=== PATIENT | female | born 2000 | race Caucasian/White ===

== ENCOUNTER 2020-08-26 17:47 | Emergency (ER) | payer OTHER ==
[~2020-08-26] VITALS: Ht 170.2 cm; Wt 71.4 kg
[2020-08-26] MEDS ORDERED: METOCLOPRAMIDE INJ 10MG/2ML VIAL (J2765 PER 1) IV ONE (19:25)
[2020-08-26] MEDS ORDERED: NS 1,000 ML IV ONE (19:25)
[2020-08-26] MEDS ORDERED: diphenhydrAMINE 50MG/ML VIAL (J1200) IV ONE (19:25)
[2020-08-26 19:50] LABS: BASO % 0.4 % (0.0-1.0); HEMATOCRIT 40.8 % (36.0-47.0); HEMOGLOBIN 13.7 g/dl (12.0-15.5); LYMPH # 0.7 10^3/uL (1.5-5.0); LYMPH % 6.4 % (24.0-44.0); MEAN CORPUSCULAR HEMOGLOBIN 30.1 pg (27.0-33.0); MEAN CORPUSCULAR HGB CONC 33.6 g/dl (32.0-36.5); MEAN CORPUSCULAR VOLUME 89.7 fl (80.0-96.0); MONO # 0.3 10^3/uL (0.0-0.8); MONO % 3.1 % (2.0-8.0); NEUTROPHILS # 9.8 10^3/uL (1.5-8.5); NEUTROPHILS % 89.5 % (36.0-66.0); PLATELET COUNT, AUTOMATED 202 10^3/uL (150-450); RED BLOOD COUNT 4.55 10^6/uL (4.00-5.40); WHITE BLOOD COUNT 10.9 10^3/uL (4.0-10.0)
[2020-08-26] MEDS ORDERED: KETOROLAC 30 MG/ML 1ML VIAL IV ONE (20:40)
[2020-08-26 20:43] LABS: ERYTHROCYTE SEDIMENTATION RATE 3 mm/hr (0-20)
--- NOTE | 2020-08-26 20:53 | REPVR ---
PROCEDURE INFORMATION: Exam: CT Head Without Contrast Exam date and time: 08/26/2020 8:10 PM Age: 20 years old Clinical indication: Pain; Headache; Additional info: Head ache, bitemporal TECHNIQUE: Imaging protocol: Computed tomography of the head without contrast. Radiation optimization: All CT scans at this facility use at least one of these dose optimization techniques: automated exposure control; mA and/or kV adjustment per patient size (includes targeted exams where dose is matched to clinical indication); or iterative reconstruction. COMPARISON: No relevant prior studies available. FINDINGS: Brain: Normal. No hemorrhage. Unremarkable white matter. No mass effect. Cerebral ventricles: No ventriculomegaly. Bones/joints: Unremarkable. No acute fracture. Paranasal sinuses: Visualized sinuses are unremarkable. No fluid levels. Mastoid air cells: Visualized mastoid air cells are well aerated. Soft tissues: Unremarkable. IMPRESSION: No acute intracranial abnormality. Electronically signed by: Jay Betancourt On 08/26/2020 20:52:40 PM
[2020-08-26] MEDS ORDERED: ONDA4TAB6 PO (21:55)
[2020-08-26] MEDS ORDERED: KETO10TAB PO (21:55)
[2020-08-26 22:06] VITALS: BP 108/50
== END 2020-08-26 22:19 | disposition home or self-care (01) ==
LOC: M ED 17:47
DX: R51.9 Headache, unspecified (principal); R11.2 Nausea with vomiting, unspecified
CPT/HCPCS: 70450; 80047; 84702; 85025; 85652; 96361; 96374; 96375; 99284; J1200; J1885; J2765

== ENCOUNTER 2022-12-27 13:50 | Emergency (ER) | payer OTHER ==
[~2022-12-27] VITALS: Ht 170.2 cm; Wt 93.1 kg
[~2022-12-27 13:50] MED LIST: KETO10TAB PO; ONDA4TAB6 PO
[2022-12-27 18:38] VITALS: BP 115/76; TEMP 97.5; O2SAT 98
== END 2022-12-27 18:44 | disposition home or self-care (01) ==
LOC: M ED 13:50
DX: R04.0 Epistaxis (principal); Z3A.39 39 weeks gestation of pregnancy; Z79.1 Long term (current) use of non-steroidal anti-inflammatories (NSAID); Z79.899 Other long term (current) drug therapy

== ENCOUNTER 2022-12-30 13:50 | Inpatient (IN) | payer OTHER ==
[~2022-12-30] VITALS: Ht 170.2 cm; Wt 91.9 kg
[2022-12-30] VITALS (29 sets, daily range): BP systolic 112–147; BP diastolic 57–87
[2022-12-30] MEDS ORDERED: MULTTAB20 PO (14:06)
[2022-12-30] MEDS ORDERED: HOME MED LIST COMPLETE! XX SCH (14:10)
[2022-12-30] MEDS ORDERED: LACTATED RINGER'S 1000 ML IV STA (14:59)
[2022-12-30] MEDS ORDERED: OXYTOCIN DRIP 30 UNITS in IV 1 EA IV SCH (15:00)
[2022-12-30] MEDS ORDERED: LIDOCAINE 1% MDV 20ML VIAL INFIL PRN (15:00)
[2022-12-30] MEDS ORDERED: OXYTOCIN DRIP 30 UNITS in IV 1 EA IV PRN ×6 (15:00)
[2022-12-30] MEDS ORDERED: TRANEXAMIC ACID INJection 1,000 MG in NS 100 ML IV PRN (15:00)
[2022-12-30] MEDS ORDERED: OXYTOCIN INJ 10UNITS/ML 1ML VIAL IM PRN (15:00)
[2022-12-30] MEDS ORDERED: OXYTOCIN INJ 10UNITS/ML 1ML VIAL IV PRN (15:00)
[2022-12-30] MEDS ORDERED: CARBOPROST TROMETHAMINE 250 MCG/ML AMP IM PRN (15:00)
[2022-12-30] MEDS ORDERED: METHYLERGONOVINE MALEATE 0.2MG/ML 1ML VIAL IM PRN (15:00)
[2022-12-30] MEDS ORDERED: LR 1,000 ML IV SCH ×2 (15:00)
[2022-12-30 15:47] LABS: HEMATOCRIT 36.5 % (36.0-47.0); MEAN CORPUSCULAR HEMOGLOBIN 28.8 pg (27.0-33.0); MEAN CORPUSCULAR HGB CONC 32.9 g/dl (32.0-36.5); MEAN CORPUSCULAR VOLUME 87.7 fl (80.0-96.0); PLATELET COUNT, AUTOMATED 208 10^3/uL (150-450); RED BLOOD COUNT 4.16 10^6/uL (4.00-5.40); WHITE BLOOD COUNT 13.6 10^3/uL (4.0-10.0)
[2022-12-30] MEDS ORDERED: diphenhydrAMINE 50MG/ML VIAL IV PRN (16:05)
[2022-12-30] MEDS ORDERED: FENTANYL/ROPIVACAINE/NACL BAG 100 ML EPIDURAL SCH (16:05)
[2022-12-30] MEDS ORDERED: ONDANSETRON 4MG 2ML VIAL IV PRN (16:05)
[2022-12-30] MEDS ORDERED: LR 500 ML IV PRN (16:05)
[2022-12-30] MEDS ORDERED: NALOXONE INJ 0.4MG/1ML VIAL IV PRN (16:05)
[2022-12-30] MEDS ORDERED: ePHEDrine SULFATE 25 MG/5 ML(5MG/ML) SYRINGE IVP PRN (16:05)
[2022-12-30] MEDS ORDERED: EPIDURAL/PCA KEYS XX PRN (16:05)
[2022-12-30 20:04] LABS: CORD GAS ABE A -10.5; CORD GAS ABE V -9.8; CORD GAS HCO3 A 21.5 MMOL/L; CORD GAS HCO3 V 21.3 MMOL/L; CORD GAS O2 SAT V 55.7 %; CORD GAS PH A 7.081 UNITS; CORD GAS PH V 7.114 UNITS; CORD GAS PO2 A 25.8 mmHg; CORD GAS PO2 V 33.1 mmHg; CORD GAS SBC A 15.1 MMOL/L; CORD GAS SBC V 15.9 MMOL/L; CORD GAS TCO2 A 23.8 MMOL/L; CORD GAS TCO2 V 23.4 MMOL/L
[2022-12-30] MEDS ORDERED: DIBUCAINE 1% OINTMENT 30GM TOP PRN (20:15)
[2022-12-30] MEDS ORDERED: ANUSOL HC CREAM 30GM TOP PRN (20:15)
[2022-12-30] MEDS ORDERED: RHOGAM 300MCG (1500IU) INJ IM SCH (20:15)
[2022-12-30] MEDS ORDERED: DOCUSATE SODIUM 100MG CAPSULE PO PRN (20:15)
[2022-12-30] MEDS ORDERED: ACETAMINOPHEN 500 MG TAB PO PRN (20:15)
[2022-12-31] MEDS: IBUPROFEN 800 MG TAB PO PRN ×2 (04:37→16:12)
[2022-12-31 06:00] VITALS: BP 100/50; O2SAT 96
[2022-12-31] MEDS: PRENATAL VITAMINS CHEWABLE TABLET PO SCH (08:52)
[2022-12-31 18:00] VITALS: BP 109/59; O2SAT 97
[2023-01-01 06:00] VITALS: BP 109/58; O2SAT 97
[2023-01-01] MEDS: PRENATAL VITAMINS CHEWABLE TABLET PO SCH (08:23)
[2023-01-01] MEDS: IBUPROFEN 800 MG TAB PO PRN (08:25)
[2023-01-01] MEDS ORDERED: MEASLES,MUMPS,RUBELLA VACCINE INJ (MMR-II) SC.IMMUN ONE (09:00)
[2023-01-01] MEDS ORDERED: IBUP80TA PO (09:30)
[2023-01-01] MEDS ORDERED: ACET-683 PO (09:30)
[2023-01-01] MEDS ORDERED: COLA100C5 PO (09:30)
== END 2023-01-01 14:10 | disposition home or self-care (01) | DRG 807 ==
LOC: M LDO 13:50 → M LDI 14:35 → M OBS 12-31 00:16
PROVIDERS: ADMIT Obstetrics & Gynecology; ATTEND Obstetrics & Gynecology
PROC: 10D07Z6 Extraction of Products of Conception, Vacuum, Via Natural or Artificial Opening (ICD-10-PCS; principal; 2022-12-30)
PROC: 0HQ9XZZ Repair Perineum Skin, External Approach (ICD-10-PCS; 2022-12-30)
DX: O76 Abnormality in fetal heart rate and rhythm complicating labor and delivery (principal); Z37.0 Single live birth; O70.0 First degree perineal laceration during delivery; Z3A.39 39 weeks gestation of pregnancy